=== PATIENT | male | born 1945 | race Caucasian/White ===

== ENCOUNTER 2017-07-30 07:33 | Day surgery (SDC) | payer MEDICARE, OTHER ==
[~2017-07-30] VITALS: Ht 167.6 cm; Wt 108.7 kg
[~2017-07-30 07:33] MED LIST: ALBU90OI6 INH; ALBU90OI61 INH; Advair Hfa 230-12 GM; ESCI20 PO; HYDCHL25 PO; METO25 PO; MONT10T PO; Naprosyn500 MG PO; Prilosec Otc20 MG PO; SIMV40 PO; TAMS.4ER PO; TIOT18 INH; Ultram50 MG PO
[2017-07-30] MEDS ORDERED: MAGOXI400 (08:18)
[2017-07-30] MEDS ORDERED: PROSTATE 2.4 C1 EACH (08:18)
[2017-07-30] MEDS ORDERED: SIME80CH (08:19)
[2017-07-30] MEDS ORDERED: POLY500 (08:19)
== END 2017-07-30 10:09 | disposition home or self-care (01) ==
LOC: ORSCSDS 07:33
PROVIDERS: Internal Medicine Gastroenterology
PROC: 0DB58ZX Excision of Esophagus, Via Natural or Artificial Opening Endoscopic, Diagnostic (ICD-10-PCS; principal; 2017-07-30 09:30)
DX: Z85.01 Personal history of malignant neoplasm of esophagus (principal); K29.00 Acute gastritis without bleeding; K21.0 Gastro-esophageal reflux disease with esophagitis; I10 Essential (primary) hypertension; J44.9 Chronic obstructive pulmonary disease, unspecified; Z87.891 Personal history of nicotine dependence; E78.5 Hyperlipidemia, unspecified; Z79.899 Other long term (current) drug therapy
CPT/HCPCS: 88305; J7120

== ENCOUNTER 2017-09-10 11:59 | Day surgery (SDC) | payer MEDICARE, OTHER ==
[~2017-09-10] VITALS: Ht 152.4 cm; Wt 112.3 kg
[~2017-09-10 11:59] MED LIST changes: +MAGOXI400; +POLY500; +PROSTATE 2.4 C1 EACH; +SIME80CH
== END 2017-09-10 13:46 | disposition home or self-care (01) ==
LOC: ORSCSDS 11:59
PROVIDERS: Internal Medicine Gastroenterology
PROC: 0DBK8ZX Excision of Ascending Colon, Via Natural or Artificial Opening Endoscopic, Diagnostic (ICD-10-PCS; principal; 2017-09-10 12:00)
PROC: 0DBL8ZX Excision of Transverse Colon, Via Natural or Artificial Opening Endoscopic, Diagnostic (ICD-10-PCS; principal; 2017-09-10 12:00)
DX: Z12.11 Encounter for screening for malignant neoplasm of colon (principal); D12.2 Benign neoplasm of ascending colon; D12.3 Benign neoplasm of transverse colon; D37.4 Neoplasm of uncertain behavior of colon; Z86.010 Personal history of colon polyps; Z85.01 Personal history of malignant neoplasm of esophagus; I10 Essential (primary) hypertension; F32.9 Major depressive disorder, single episode, unspecified; K21.9 Gastro-esophageal reflux disease without esophagitis; E78.5 Hyperlipidemia, unspecified; Z87.891 Personal history of nicotine dependence; Z79.899 Other long term (current) drug therapy
CPT/HCPCS: 88305; J7120

== ENCOUNTER 2018-08-20 06:49 | Day surgery (SDC) | payer MEDICARE, OTHER ==
[~2018-08-20] VITALS: Ht 167.6 cm; Wt 112.3 kg
[~2018-08-20 06:49] MED LIST changes: -Advair Hfa 230-12 GM; +Advair Hfa 230-12 GM INH; +DOCCAL240 PO; -SIME80CH; +SIME80CH PO; +THERA1 EACH PO
--- NOTE | 2018-08-20 07:10 | NUR ---
Ambulatory in Day Surgery. Patient states colon prep results clear. History, Chart, Medications and Allergies reviewed before start of procedure. Patient confirms NPO status and agrees with scheduled surgery. Patient States Post-Procedure ride home has been arranged.
--- NOTE | 2018-08-20 07:17 | NUR ---
PT WITH EXP WHEEZES, SLIGHT WET COUGH.
--- NOTE | 2018-08-20 08:08 | NUR ---
08/20/18 0808 Dedrick Gill Bite Block Placed. 3-LEAD EKG REVIEWED WITH PHYSICIAN PRIOR TO START OF PROCEDURE. Patient to ENDO 1. MONITOR INTACT WITH CONTINUOUS PULSE OXIMETRY AND INTERMITTENT BP. O2 VIA N/C INTACT THROUGHOUT SEDATION/PROCEDURE. See Anesthesia record.
--- NOTE | 2018-08-20 09:31 | NUR ---
"DAY SURGERY RN | DISCHARGE VSS. A/O. No issues. Discharge instructions given with family present. No questions. Denies pain and nausea. Drinking coffee and water without issue. Steady on feet. Taken to car by volunteer, is ride."
== END 2018-08-20 23:02 | disposition home or self-care (01) ==
LOC: ORSCMMR 06:49 → ORD 08:00 → ORSCMMR 08:00
PROVIDERS: Internal Medicine Gastroenterology
PROC: 0DBH8ZX Excision of Cecum, Via Natural or Artificial Opening Endoscopic, Diagnostic (ICD-10-PCS; principal; 2018-08-20 08:00)
PROC: 0DBN8ZX Excision of Sigmoid Colon, Via Natural or Artificial Opening Endoscopic, Diagnostic (ICD-10-PCS; principal; 2018-08-20 08:00)
PROC: 0DB48ZX Excision of Esophagogastric Junction, Via Natural or Artificial Opening Endoscopic, Diagnostic (ICD-10-PCS; principal; 2018-08-20 08:00)
PROC: 0DBM8ZX Excision of Descending Colon, Via Natural or Artificial Opening Endoscopic, Diagnostic (ICD-10-PCS; principal; 2018-08-20 08:00)
PROC: 0DBK8ZX Excision of Ascending Colon, Via Natural or Artificial Opening Endoscopic, Diagnostic (ICD-10-PCS; principal; 2018-08-20 08:00)
PROC: 0DB68ZX Excision of Stomach, Via Natural or Artificial Opening Endoscopic, Diagnostic (ICD-10-PCS; principal; 2018-08-20 08:00)
DX: K21.9 Gastro-esophageal reflux disease without esophagitis (principal); Z86.010 Personal history of colon polyps; D12.0 Benign neoplasm of cecum; D12.2 Benign neoplasm of ascending colon; D12.4 Benign neoplasm of descending colon; K63.5 Polyp of colon; Z85.01 Personal history of malignant neoplasm of esophagus; K57.30 Diverticulosis of large intestine without perforation or abscess without bleeding; I10 Essential (primary) hypertension; J44.9 Chronic obstructive pulmonary disease, unspecified; E78.00 Pure hypercholesterolemia, unspecified; Z87.891 Personal history of nicotine dependence; Z79.899 Other long term (current) drug therapy; E66.01 Morbid (severe) obesity due to excess calories; Z68.39 Body mass index [BMI] 39.0-39.9, adult
CPT/HCPCS: 88305; 88342; J2704; J7120